=== PATIENT | male | born 1950 | race African-American/Black ===

== ENCOUNTER → 2016-11-06 | Outpatient (CLI) | payer OTHER ==
--- NOTE | 2016-11-06 13:31 | DI ---
EXAM: LUMBAR SPINE COMP W/O BEND HISTORY: ITS.REASON: DIAGNOSTIC IMAGING LOCATION OF DICTATION: [facility] COMPARISON: No prior studies available for comparison. FINDINGS: The lumbar vertebral bodies are of normal density demonstrating no evidence of compression fracture. There is grade 1 retrolisthesis of L2 on L3 estimated at 6 mm the remaining lumbar vertebral bodies are in good alignment. There is moderate to severe narrowing of the L2-L3, L4-5 and L5-S1 disc spaces. There is vacuum disc phenomenon at L5-S1. The remaining disk spaces are well maintained. There is spurring of the endplates. The pedicles and posterior elements appear intact. There is moderate facet joint arthrosis in the mid to lower lumbar spine. There are no obvious pars defects on the oblique images. There is straightening of the lumbar lordosis. The psoas muscle margins are clearly visualized. There is moderate degenerative change in the SI joints bilaterally. Vascular calcifications are seen over the pelvis. IMPRESSION: 1. No plain film evidence of acute compression fractures or traumatic malalignment in the lumbar spine region. 2. Moderate to severe degenerative disc narrowing at L2-L3, L4-L5 and L5-S1. 3. Grade 1 retrolisthesis of L2 on L3 which appears degenerative in etiology. 4. Straightening of the lumbar lordosis which can indicate spasm. 5. 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 6. ASVD. .
== END ==
LOC: IMA 12:28
DX: Z02.9 Encounter for administrative examinations, unspecified (principal)